=== PATIENT | female | born 1950 | race Caucasian/White ===

== ENCOUNTER 2021-06-22 17:55 | Emergency (ER) | payer MEDICARE, OTHER ==
[2021-06-22] MEDS ORDERED: Gabapentin 100 MG Cap PO ONE (18:35)
[2021-06-22] MEDS ORDERED: valACYclovir 1,000 MG Tab PO STA (18:35)
[2021-06-22] MEDS ORDERED: Gabapentin 300 MG Cap PO ONE (18:39)
--- NOTE | 2021-06-22 18:43 | EDM.PDOC ---
ED HPI GENERAL MEDICAL PROBLEM - General Chief Complaint: Skin Complaint Stated Complaint: BLISTERS ON HAND Time Seen by Provider: 06/22/21 18:07 Source of Information: Reports: Patient History Limitations: Reports: No Limitations - History of Present Illness INITIAL COMMENTS - FREE TEXT/NARRATIVE: 71-year-old female presents the emergency department today with complaints of a rash that started approximately 3 days ago noted to the palmar aspect of her left index and pinky finger, left half of the palm of her left hand as well as medial left forearm. She states that she initially had burning discomfort noted to this area prior to developing the rash. She states that the rash has developed into pustules and she has been attempting to pop them. She notes a burning discomfort to this area as well. She denies any recent fever, chills, nausea, vomiting or diarrhea. She does admit to having chickenpox as a child. She is unsure of whether or not she has had her shingles vaccine. Her primary care provider is Dr Jason. Left Hand Pain Score (Numeric/FACES): 6 - Related Data Allergies Allergy/AdvReac Type Severity Reaction Status Date / Time Penicillins Allergy Rash Verified 06/22/21 18:07 Home Meds: Home Meds Gabapentin [Neurontin] 300 mg PO TID #30 cap 06/22/21 [Rx] valACYclovir [Valtrex] 1,000 mg PO TID #20 tablet 06/22/21 [Rx] Past Medical History - Infectious Disease History Infectious Disease History: Reports: Chicken Pox Social & Family History - Tobacco Use Tobacco Use Status *Q: Never Tobacco User ED ROS GENERAL - Review of Systems Review Of Systems: Comprehensive ROS is negative, except as noted in HPI. ED EXAM, SKIN/RASH Exam: See Below Exam Limited By: No Limitations General Appearance: Alert, WD/WN, No Apparent Distress Ears: Normal External Exam, Hearing Grossly Normal Nose: Normal Inspection Throat/Mouth: Normal Inspection, Normal Lips, Normal Voice, No Airway Compromise Head: Atraumatic Neck: Normal Inspection, Supple Respiratory/Chest: No Respiratory Distress, No Accessory Muscle Use Cardiovascular: Normal Peripheral Pulses, Regular Rate, Rhythm GI/Abdominal: No Distention (Female) Exam: Deferred Rectal (Female) Exam: Deferred Back Exam: Normal Inspection Extremities: Other (Vesicular rash noted to left half of the left hand on the palmar aspect including ring finger and pinky finger as well as medial aspect of the left forearm) Neurological: Alert, Oriented, Normal Cognition Psychiatric: Normal Affect, Normal Mood Skin: Rash (Vesicular rash noted to the palm of the left half of the left hand as well as medial aspect of left forearm) Location, Skin: Lower Extremity, Left Characteristics: Vesicular Lymphatic: No Adenopathy Course - Vital Signs Text/Narrative:: Upon exam, the patient is awake alert and oriented. She does have a vesicular rash noted to the palmar aspect of her left ring and pinky finger as well as the left half of the palm of her left hand and medial left forearm. Patient does admit to a burning sensation in this area. Clinically, the patient does have shingles. Located on the dermatome of T1. She denies any other areas of rash or burning. Remainder of physical exam is unremarkable. Patient will be started on valacyclovir 1000 mg 3 times daily for 7 days. As well as gabapentin 300 mg today then 300 mg twice daily tomorrow then 300 mg 3 times daily thereafter for moderate pain. Patient will then be referred for follow-up with her primary care provider in about 1 week's time for reevaluation. Patient has been instructed that she is contagious at this time. Last Recorded V/S: Last Vital Signs Temp 97.5 F 06/22/21 18:05 Pulse 102 H 06/22/21 18:05 Resp 16 06/22/21 18:05 BP 143/84 H 06/22/21 18:05 Pulse Ox 98 06/22/21 18:05 - Orders/Labs/Meds Meds: Medications Discontinued Medications Generic Name Dose Route Start Last Admin Trade Name Renita PRN Reason Stop Dose Admin Acetaminophen 975 mg 06/22/21 18:46 Acetaminophen 325 Mg Tab PO 06/22/21 18:47 NOW ONE Gabapentin 100 mg 06/22/21 18:35 Gabapentin 100 Mg Cap PO 06/22/21 18:36 ONETIME ONE Gabapentin 300 mg 06/22/21 18:39 Gabapentin 300 Mg Cap PO 06/22/21 18:40 ONETIME ONE Valacyclovir HCl 1,000 mg 06/22/21 18:35 Valacyclovir 1,000 Mg Tab PO 06/22/21 18:36 NOW STA Departure - Departure Time of Disposition: 19:27 Disposition: Home, Self-Care 01 Condition: Good Clinical Impression: Shingles Qualifiers: Herpes zoster complications: without complications Qualified Code(s): B02.9 - Zoster without complications - Discharge Information Prescriptions: Gabapentin [Neurontin] 300 mg PO TID #30 cap valACYclovir [Valtrex] 1,000 mg PO TID #20 tablet Instructions: Shingles, [id number] Referrals: Neeraj Jason MD [Primary Care Provider] - Forms: ED Department Discharge Additional Instructions: You were seen in the emergency department the rash noted to your left hand and forearm that started approximately 3 days ago. Upon evaluation you have shingles. As discussed you are contagious until the blisterlike areas open and are crusting. While in the emergency department you did receive an antiviral treatment called valacyclovir. I have sent prescription to your pharmacy for this medication to be taken 3 times daily until gone. You can pick that up first thing tomorrow. I have also started you on a medication called gabapentin to help with the burning sensation associated with the shingles. I have sent prescription to clinic pharmacy for that medication as well tomorrow you need to take 1 tab twice daily and then there after 3 times daily. May take Tylenol 650 mg every 4 hours as needed for the discomfort as well. You will need to follow- up with Dr. Jason in about 1 week for reevaluation. Should your condition worsen or change, do not hesitate returning to the emergency department. Sepsis Event Note (ED) - Evaluation Sepsis Screening Result: No Definite Risk - Focused Exam Vital Signs: Vital Signs Temp Pulse Resp BP Pulse Ox 06/22/21 18:05 97.5 F 102 H 16 143/84 H 98
[2021-06-22] MEDS ORDERED: Acetaminophen 325 MG Tab PO ONE (18:46)
== END 2021-06-22 19:57 | disposition home or self-care (01) ==
LOC: JD.ED 17:55
DX: B02.9 Zoster without complications (principal); Z88.0 Allergy status to penicillin
CPT/HCPCS: 99282; A9270